=== PATIENT | male | born 1990 | race American Indian/Alaskan Native ===

== ENCOUNTER 2016-09-27 13:20 | Emergency (ER) | payer MEDICAID ==
--- NOTE | 2016-09-27 14:12 | Emergency Department Report ---
ED Psych HPI - General Chief Complaint: Psych Stated Complaint: RESTABLIZED Time Seen by Provider: 09/27/16 13:59 Source: patient Mode of arrival: Ambulatory - History of Present Illness Initial Comments: The patient states that he has not had is in vague "for 2 months. According to triage he" is starting to decompensate last week. Disruptive, delusional and uncooperative with erratic behavior. Cannot control his anger." When I spoke to this patient he was not angry or threatening to me. He probably does have some chronic delusions. He told me that he is a straightforward and honest person that was raised right by his mother. He states that he just needs his medication. He denies auditory hallucinations now or history there of. He states when he does not get his medicine he does not get paranoid but he does get very "hyper" and states "I talk to much". Complaint: other (hyperverbal) -: week(s) Associated Psychiatric Symptoms: racing thoughts, delusions History of same: Yes Quality: constant Improves With: none Worsens With: none Context: not taking psychiatric Associated Symptoms: denies other symptoms Treatments Prior to Arrival: none - Related Data Allergies Allergy/AdvReac Type Severity Reaction Status Date / Time No Known Allergies Allergy Verified 09/27/16 13:32 ED Review of Systems ROS: Stated complaint: RESTABLIZED Other details as noted in HPI Constitutional: denies: chills, fever Eyes: denies: eye pain, eye discharge, vision change ENT: denies: ear pain, throat pain Respiratory: denies: cough, shortness of breath, wheezing Cardiovascular: denies: chest pain, palpitations Endocrine: no symptoms reported Gastrointestinal: denies: abdominal pain, nausea, diarrhea Genitourinary: denies: urgency, dysuria Musculoskeletal: denies: back pain, joint swelling, arthralgia Skin: denies: rash, lesions Neurological: denies: headache, weakness, paresthesias Psychiatric: as per HPI. denies: anxiety, depression, auditory hallucinations, visual hallucinations, homicidal thoughts, suicidal thoughts Hematological/Lymphatic: denies: easy bleeding, easy bruising ED Past Medical Hx - Past Medical History Previous Medical History?: Yes Hx Psychiatric Treatment: Yes (Schz/ Bi-polar. Schzo. effective dx.) - Social History Smoking Status: Current Every Day Smoker Substance Use Type: Alcohol, Marijuana ED Physical Exam - General Limitations: No Limitations General appearance: alert, in no apparent distress - Head Head exam: Present: atraumatic, normocephalic - Eye Eye exam: Present: normal appearance - ENT ENT exam: Present: mucous membranes moist - Neck Neck exam: Present: normal inspection - Respiratory Respiratory exam: Present: normal lung sounds bilaterally. Absent: respiratory distress - Cardiovascular Cardiovascular Exam: Present: regular rate, normal rhythm. Absent: systolic murmur, diastolic murmur, rubs, gallop - GI/Abdominal GI/Abdominal exam: Present: soft, normal bowel sounds. Absent: distended, tenderness, guarding, rebound, rigid - Rectal Rectal exam: Present: deferred - Extremities Exam Extremities exam: Present: normal inspection - Back Exam Back exam: Present: normal inspection - Neurological Exam Neurological exam: Present: alert, oriented X3, CN II-XII intact. Absent: motor sensory deficit - Psychiatric Psychiatric exam: Present: flat affect, manic (hypomanic) - Skin Skin exam: Present: warm, dry, intact, normal color. Absent: rash ED Course Vital Signs 09/27/16 13:33 Temperature 98.6 F Pulse Rate 87 Respiratory 20 Rate Blood Pressure 134/88 O2 Sat by Pulse 100 Oximetry ED Medical Decision Making - Lab Data Result diagrams: 09/27/16 14:03 09/27/16 14:03 Laboratory Results - last 24 hr 09/27/16 14:03 WBC 4.0 L RBC 4.56 Hgb 14.3 Hct 43.4 MCV 95 H MCH 31 MCHC 33 RDW 13.2 Plt Count 246 Lymph % (Auto) 35.6 H Dundy % (Auto) 9.4 H Eos % (Auto) 5.6 H Baso % (Auto) 0.7 Lymph # 1.4 Dundy # 0.4 Eos # 0.2 Baso # 0.0 Seg Neutrophils % 48.7 Seg Neutrophils # 2.0 Laboratory Results - last 24 hr 09/27/16 09/27/16 09/27/16 14:03 14:03 14:30 WBC 4.0 L RBC 4.56 Hgb 14.3 Hct 43.4 MCV 95 H MCH 31 MCHC 33 RDW 13.2 Plt Count 246 Lymph % (Auto) 35.6 H Dundy % (Auto) 9.4 H Eos % (Auto) 5.6 H Baso % (Auto) 0.7 Lymph # 1.4 Dundy # 0.4 Eos # 0.2 Baso # 0.0 Seg Neutrophils % 48.7 Seg Neutrophils # 2.0 Sodium 137 Potassium 4.3 Chloride 101.4 Carbon Dioxide 22 Anion Gap 18 BUN 8 L Creatinine 1.1 Estimated GFR > 60 BUN/Creatinine Ratio 7.27 Glucose 74 L Calcium 9.6 Urine RBC (Auto) 2.0 - Medical Decision Making Patient appears to have a bipolar disorder with psychotic features I believe. He does need to be stabilized with medication. It is a possibility that this can be done here in the emergency department with a course of treatment. I referred the patient to mental [facility] for final determination. We do not have Invega. However, the patient states that he is willing to try another medication. We will see if he responds to Geodon. Critical care attestation.: If time is entered above; I have spent that time in minutes in the direct care of this critically ill patient, excluding procedure time. ED Disposition Clinical Impression: Bipolar disorder with psychotic features Disposition: DC/TX-65 PSY HOSP/PSY UNIT Is pt being admited?: No Does the pt Need Aspirin: No Condition: Stable Referrals: PRIMARY CARE, [Primary Care Provider] - 3-5 Days
[2016-09-27] MEDS ORDERED: GEODON IM ONE (14:14)
[2016-09-27 14:16] LABS: Basophils % (Auto) 0.7 % (0.0-1.8); Eosinophils % (Auto) 5.6 % (0.0-4.3); Hematocrit 43.4 % (35.5-45.6); Hemoglobin 14.3 gm/dl (11.8-15.2); Mean Corpuscular HGB Conc 33 % (32-34); Mean Corpuscular Hemoglobin 31 pg (28-32); Mean Corpuscular Volume 95 fl (84-94); Platelet Count 246 K/mm3 (140-440); Red Blood Count 4.56 M/mm3 (3.65-5.03); Red Cell Distribution Width 13.2 % (13.2-15.2)
[2016-09-27 14:33] LABS: Anion Gap 18 mmol/L; BUN/Creatinine Ratio 7.27; Blood Urea Nitrogen 8 mg/dL (9-20); Calcium 9.6 mg/dL (8.4-10.2); Carbon Dioxide 22 mmol/L (22-30); Chloride 101.4 mmol/L (98-107); Glucose 74 mg/dL (75-100); Potassium 4.3 mmol/L (3.6-5.0); Sodium 137 mmol/L (137-145)
[2016-09-27 14:34] LABS: Urine Drugs of Abuse Note Disclamer
[2016-09-27 14:58] LABS: WBC,Urine < 1.0 /HPF (0.0-6.0)
[2016-09-27 15:01] LABS: Bilirubin,Urine Negative (Negative); Blood,Urine Negative (Negative); Ketones,Urine Negative (Negative)
[2016-09-27 15:02] LABS: Leukocyte Esterase,Urine Negative (Negative); Nitrite,Urine Negative (Negative); Protein,Urine <15 mg/dL mg/dL (Negative)
[2016-09-27] MEDS: GEODON PO SCH (20:21)
[2016-09-28 08:58] VITALS: BP 101/58
[2016-09-28] MEDS: GEODON PO SCH ×2 (10:28→22:22)
--- NOTE | 2016-09-28 17:31 | Emergency Department Report ---
Blank Doc - Documentation Documentation: Yesterday at the patient's mental health assessment was recommended the patient be placed on a 1013 for uncontrolled manic behavior. Inpatient treatment recommended. 1013 signed at this time.
== END 2016-09-28 23:30 ==
LOC: EEVIPCON 13:20 → ED 13:20
DX: F31.9 Bipolar disorder, unspecified (principal); F20.9 Schizophrenia, unspecified; F17.200 Nicotine dependence, unspecified, uncomplicated; F12.90 Cannabis use, unspecified, uncomplicated
CPT/HCPCS: 36415; 80048; 80307; 81001; 85025; 96372; 99285; G0480; J3486; 80320

== ENCOUNTER 2016-12-14 19:30 | Emergency (ER) | payer MEDICAID ==
[2016-12-14 20:45] LABS: Urine Drugs of Abuse Note Disclamer
[2016-12-14 21:01] LABS: Bilirubin,Urine NEG (Negative); Blood,Urine NEG (Negative); Ketones,Urine NEG (Negative); Leukocyte Esterase,Urine NEG (Negative); Mucus,Urine FEW /HPF; Nitrite,Urine NEG (Negative); Protein,Urine <15 mg/dL mg/dL (Negative); Urobilinogen,Urine < 2.0 mg/dL (<2.0)
[2016-12-14 21:21] LABS: Basophils % (Auto) 0.4 % (0.0-1.8); Hematocrit 44.2 % (35.5-45.6); Hemoglobin 14.5 gm/dl (11.8-15.2); Mean Corpuscular HGB Conc 33 % (32-34); Mean Corpuscular Hemoglobin 31 pg (28-32); Mean Corpuscular Volume 94 fl (84-94); Platelet Count 204 K/mm3 (140-440); Red Blood Count 4.72 M/mm3 (3.65-5.03); Red Cell Distribution Width 13.3 % (13.2-15.2); White Blood Count 5.6 K/mm3 (4.5-11.0)
[2016-12-14 21:35] LABS: Anion Gap 17 mmol/L; BUN/Creatinine Ratio 10; Blood Urea Nitrogen 9 mg/dL (9-20); Calcium 9.8 mg/dL (8.4-10.2); Carbon Dioxide 27 mmol/L (22-30); Chloride 101.4 mmol/L (98-107); Glucose 87 mg/dL (75-100); Potassium 4.1 mmol/L (3.6-5.0); Sodium 141 mmol/L (137-145)
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
[2016-12-15 09:24] VITALS: BP 116/66
== END 2016-12-15 14:45 ==
LOC: ED 19:30
DX: R45.851 Suicidal ideations (principal); F32.9 Major depressive disorder, single episode, unspecified; F12.10 Cannabis abuse, uncomplicated; F17.200 Nicotine dependence, unspecified, uncomplicated
CPT/HCPCS: 36415; 80048; 80307; 81001; 85025; 99285; G0480; 80320

== ENCOUNTER 2016-12-31 16:50 | Emergency (ER) | payer MEDICAID ==
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
[2016-12-31 17:29] LABS: Urine Drugs of Abuse Note Disclamer
[2016-12-31 17:32] LABS: Bilirubin,Urine NEG (Negative); Blood,Urine NEG (Negative); Ketones,Urine NEG (Negative); Leukocyte Esterase,Urine NEG (Negative); Nitrite,Urine NEG (Negative); Protein,Urine <15 mg/dL mg/dL (Negative); WBC,Urine < 1.0 /HPF (0.0-6.0)
[2016-12-31 17:46] LABS: Basophils % (Auto) 0.4 % (0.0-1.8); Eosinophils % (Auto) 1.8 % (0.0-4.3); Hematocrit 40.7 % (35.5-45.6); Hemoglobin 13.4 gm/dl (11.8-15.2); Mean Corpuscular HGB Conc 33 % (32-34); Mean Corpuscular Hemoglobin 31 pg (28-32); Mean Corpuscular Volume 93 fl (84-94); Platelet Count 195 K/mm3 (140-440); Red Blood Count 4.38 M/mm3 (3.65-5.03); Red Cell Distribution Width 13.4 % (13.2-15.2); White Blood Count 4.6 K/mm3 (4.5-11.0)
[2016-12-31 17:58] LABS: Anion Gap 16 mmol/L; BUN/Creatinine Ratio 7; Blood Urea Nitrogen 6 mg/dL (9-20); Calcium 9.4 mg/dL (8.4-10.2); Carbon Dioxide 24 mmol/L (22-30); Chloride 101.9 mmol/L (98-107); Glucose 125 mg/dL (75-100); Potassium 3.7 mmol/L (3.6-5.0); Sodium 138 mmol/L (137-145)
--- NOTE | 2016-12-31 18:24 | Emergency Department Report ---
ED Psych HPI - General Chief Complaint: Anxiety Stated Complaint: ANXIETY Time Seen by Provider: 12/31/16 16:58 Source: patient Mode of arrival: Ambulatory - History of Present Illness Initial Comments: Patient is 26 years old male living in a snf he presented today stating that he had an anxiety attack and he does not want to go back to the snf patient stated that when he closes his eyes he he starts seeing what going on in the world. He also status sometimes he will hear voices. Patient denied any suicidal thoughts or homicidal thoughts. -: Gradual Associated Psychiatric Symptoms: racing thoughts Quality: constant Associated Symptoms: denies: confusion, headache, shortness of breath, nausea, vomiting Treatments Prior to Arrival: none - Related Data Home Medications Medication Instructions Recorded Confirmed Last Taken Paliperidone Palmitate [Invega 39 mg IM QMONTH 09/28/16 12/31/16 1 Month Ago Sustenna] Allergies Allergy/AdvReac Type Severity Reaction Status Date / Time No Known Allergies Allergy Verified 12/31/16 16:54 ED Review of Systems ROS: Stated complaint: ANXIETY Other details as noted in HPI Comment: All other systems reviewed and negative Constitutional: denies: chills, fever Respiratory: denies: cough, shortness of breath, SOB with exertion Cardiovascular: denies: chest pain, palpitations, dyspnea on exertion Gastrointestinal: denies: abdominal pain, nausea, vomiting Neurological: denies: headache, paresthesias Psychiatric: anxiety, auditory hallucinations, visual hallucinations. denies: depression, homicidal thoughts, suicidal thoughts ED Past Medical Hx - Past Medical History Hx Psychiatric Treatment: Yes (Schz/ Bi-polar. Schzo. effective dx.) - Social History Smoking Status: Current Every Day Smoker Substance Use Type: None - Medications Home Medications: Home Medications Medication Instructions Recorded Confirmed Last Taken Type Paliperidone Palmitate [Invega 39 mg IM QMONTH 09/28/16 12/31/16 1 Month Ago History Sustenna] ED Physical Exam - General Limitations: No Limitations General appearance: alert, in no apparent distress, anxious - Head Head exam: Present: atraumatic, normocephalic, normal inspection - Eye Eye exam: Present: normal appearance, PERRL, EOMI - ENT ENT exam: Present: normal exam, normal orophraynx, mucous membranes moist - Neck Neck exam: Present: normal inspection, full ROM - Respiratory Respiratory exam: Present: normal lung sounds bilaterally. Absent: respiratory distress, wheezes, rales, rhonchi, stridor - Cardiovascular Cardiovascular Exam: Present: tachycardia - GI/Abdominal GI/Abdominal exam: Present: soft, normal bowel sounds. Absent: distended, tenderness, guarding, rebound, rigid, mass, bruit, pulsatile mass - Extremities Exam Extremities exam: Present: normal inspection, normal capillary refill. Absent: tenderness - Back Exam Back exam: Present: normal inspection. Absent: tenderness, CVA tenderness (R), CVA tenderness (L) - Neurological Exam Neurological exam: Present: alert, oriented X3, CN II-XII intact - Psychiatric Psychiatric exam: Present: normal mood, anxious. Absent: depressed, agitated, manic, homicidal ideation, suicidal ideation - Skin Skin exam: Present: warm, intact, normal color ED Course Vital Signs 12/31/16 16:55 Temperature 98.8 F Pulse Rate 105 H Respiratory 20 Rate Blood Pressure 122/73 O2 Sat by Pulse 96 Oximetry ED Medical Decision Making - Lab Data Result diagrams: 12/31/16 17:25 12/31/16 17:25 Critical care attestation.: If time is entered above; I have spent that time in minutes in the direct care of this critically ill patient, excluding procedure time. ED Disposition Clinical Impression: Depression, Anxiety and depression Disposition: [id number]/TX-65 PSY HOSP/PSY UNIT Is pt being admited?: No Condition: Stable Referrals: PRIMARY CARE, [Primary Care Provider] - 3-5 Days
[2017-01-01 21:09] VITALS: BP 113/56
== END 2017-01-01 21:13 ==
LOC: ED 16:50
DX: F41.8 Other specified anxiety disorders (principal); F31.9 Bipolar disorder, unspecified; F20.9 Schizophrenia, unspecified; F17.200 Nicotine dependence, unspecified, uncomplicated
CPT/HCPCS: 36415; 80048; 80307; 81001; 85025; 99285; G0480; 80320

== ENCOUNTER 2017-01-22 22:57 | Emergency (ER) | payer MEDICAID ==
[2017-01-23 00:29] LABS: Basophils % (Auto) 0.4 % (0.0-1.8); Eosinophils % (Auto) 2.8 % (0.0-4.3); Hemoglobin 13.6 gm/dl (11.8-15.2); Mean Corpuscular HGB Conc 33 % (32-34); Mean Corpuscular Hemoglobin 31 pg (28-32); Mean Corpuscular Volume 94 fl (84-94); Platelet Count 277 K/mm3 (140-440); Red Blood Count 4.36 M/mm3 (3.65-5.03); Red Cell Distribution Width 14.3 % (13.2-15.2); White Blood Count 4.9 K/mm3 (4.5-11.0)
[2017-01-23 00:44] LABS: Anion Gap 18 mmol/L; BUN/Creatinine Ratio 7; Blood Urea Nitrogen 6 mg/dL (9-20); Calcium 9.1 mg/dL (8.4-10.2); Carbon Dioxide 23 mmol/L (22-30); Chloride 104.6 mmol/L (98-107); Glucose 92 mg/dL (75-100); Potassium 4.2 mmol/L (3.6-5.0); Sodium 141 mmol/L (137-145)
[2017-01-23 01:03] LABS: Urine Drugs of Abuse Note Disclamer
[2017-01-23 01:43] LABS: WBC,Urine < 1.0 /HPF (0.0-6.0)
[2017-01-23 01:50] LABS: Bilirubin,Urine Negative (Negative); Blood,Urine Negative (Negative); Ketones,Urine Negative (Negative); Leukocyte Esterase,Urine Negative (Negative); Nitrite,Urine Negative (Negative); Protein,Urine <15 mg/dL mg/dL (Negative); Urobilinogen,Urine < 2.0 mg/dL (<2.0)
[2017-01-23] MEDS ORDERED: HALDOL IM PRN (08:35)
[2017-01-23] MEDS ORDERED: ATIVAN IM PRN (08:35)
--- NOTE | 2017-01-23 08:35 | Emergency Department Report ---
ED General Adult HPI - General Chief complaint: Psych Stated complaint: ANXIETY/ OUT OF MEDICATION Time Seen by Provider: 01/23/17 08:01 Source: patient, EMS (ems notes not available at time of chart dictation), RN notes reviewed, old records reviewed Mode of arrival: Ambulatory Limitations: No Limitations - History of Present Illness Initial comments: This is a 26-year-old male who was previously unknown to this provider. He has a past medical history of psychiatric disease. He presents to the ER requesting refill on Risperdal and trazodone. He also reports resolved anxiety attack. He cannot describe the anxiety attack. He denies headache, neck pain, chest pain, abdominal pain and shortness of breath. On review of systems, he indicates that he was feeling "tired", and attempted to overdose on Risperdal yesterday at 3:00 PM. He doesn't know how many tablets he took, and he denies coingestions. He also noticed visual hallucinations. He indicates no access to guns and firearms. -: Gradual Severity scale (0 -10): 0 Consistency: now resolved Improves with: none Worsens with: none Associated Symptoms: other (anxiety). denies: confusion, chest pain, cough, diaphoresis, fever/chills, headaches, loss of appetite, malaise, nausea/vomiting , rash, shortness of breath, syncope, weakness - Related Data Home Medications Medication Instructions Recorded Confirmed Last Taken Paliperidone Palmitate [Invega 39 mg IM [facility]MONTH 09/28/16 12/31/16 1 Month Ago Sustenna] ~08/29/16 Allergies Allergy/AdvReac Type Severity Reaction Status Date / Time No Known Allergies Allergy Verified 12/31/16 16:54 ED Review of Systems ROS: Stated complaint: ANXIETY/ OUT OF MEDICATION Other details as noted in HPI Constitutional: denies: fever Eyes: denies: eye discharge ENT: denies: epistaxis Respiratory: denies: cough Cardiovascular: denies: chest pain Gastrointestinal: denies: abdominal pain Genitourinary: denies: dysuria Musculoskeletal: as per HPI Skin: as per HPI Neurological: denies: headache Psychiatric: visual hallucinations. denies: homicidal thoughts ED Past Medical Hx - Past Medical History Previous Medical History?: Yes Hx Psychiatric Treatment: Yes (Schz/ Bi-polar. Schzo. effective dx.) - Surgical History Past Surgical History?: No - Social History Smoking Status: Current Every Day Smoker Substance Use Type: None - Medications Home Medications: Home Medications Medication Instructions Recorded Confirmed Last Taken Type Paliperidone Palmitate [Invega 39 mg IM [facility]MONTH 09/28/16 12/31/16 1 Month Ago History Sustenna] ~08/29/16 ED Physical Exam - General Limitations: No Limitations General appearance: alert, in no apparent distress - Head Head exam: Present: atraumatic, normocephalic - Eye Eye exam: Present: normal appearance, PERRL, EOMI, other (visual acuity intact to finger counting, color perception, reading at a close distance). Absent: nystagmus - ENT ENT exam: Present: normal exam, normal orophraynx, mucous membranes moist, normal external ear exam - Neck Neck exam: Present: normal inspection, full ROM - Respiratory Respiratory exam: Present: normal lung sounds bilaterally. Absent: respiratory distress, wheezes, rales, rhonchi, stridor - Cardiovascular Cardiovascular Exam: Present: regular rate, normal rhythm, normal heart sounds. Absent: bradycardia, tachycardia, irregular rhythm, systolic murmur, diastolic murmur, rubs, gallop - GI/Abdominal GI/Abdominal exam: Present: soft, normal bowel sounds. Absent: distended, tenderness, guarding, rebound, rigid, pulsatile mass - Rectal Rectal exam: Present: deferred - Extremities Exam Extremities exam: Present: normal inspection, full ROM, normal capillary refill. Absent: pedal edema, joint swelling, calf tenderness - Back Exam Back exam: Present: normal inspection, full ROM. Absent: tenderness, CVA tenderness (R), CVA tenderness (L), muscle spasm, paraspinal tenderness, vertebral tenderness - Neurological Exam Neurological exam: Present: alert, oriented X3, normal gait, other (Extraocular movements intact. Tongue midline. No facial droop. Facial sensation intact to light touch in the V1, V2, V3 distribution bilaterally. 5 and 5 strength in 4 extremities.. Sensation is intact to light touch in 4 extremities.). Absent : motor sensory deficit - Psychiatric Psychiatric exam: Present: flat affect. Absent: homicidal ideation - Skin Skin exam: Present: warm, dry, intact, normal color. Absent: rash ED Course Vital Signs 01/22/17 01/23/17 23:30 09:33 Temperature 98.7 F 98.7 F Pulse Rate 70 58 L Respiratory 16 16 Rate Blood Pressure 118/66 125/73 [Right] O2 Sat by Pulse 97 100 Oximetry - Reevaluation(s) Reevaluation #1: 01/23/17 10:05 Differential diagnosis, including but not limited to: Decompensated psychiatric disease, overdose, suicidality, medication refill Assessment and plan: 26-year-old male who requests refill on Risperdal and trazodone. He then goes on to tell me that he has a 5 day supply of Risperdal. He further elaborates on review of systems that he overdosed more than 12 hours ago on a few Risperdal tablets. He reports ingestion was at 3:00 PM yesterday. It is now 10:00 AM. The reported overdose is approximately 19 hours old. Serum toxicology screens are pending. EKG is unremarkable. The patient is in normal sinus clinically and as per EKG. There is some motion artifact in the lateral leads, however on physical exam and upon global review of the EKG he is on atrial fibrillation. He required a 1013. We will contact the psychiatry team to evaluate him once his serum toxicology studies have resulted. Given that the ingestion is 19 hours old, his vital signs have remained stable, and I presume his serum toxicology studies will be unremarkable, I do not believe the patient requires an emergent consultation with the Poison Control [facility]. Reevaluation #2: 01/23/17 14:20 Patient resting comfortably, and in no distress. Serum toxicology studies are unremarkable. The patient is medically stable for psychiatric consultation, evaluation and placement at this time. there does not appear to be any immediate medical contraindication to psychiatric placement. ED Medical Decision Making - Lab Data Result diagrams: 01/22/17 23:49 01/22/17 23:49 Vital Signs 01/22/17 01/23/17 23:30 09:33 Temperature 98.7 F 98.7 F Pulse Rate 70 58 L Respiratory 16 16 Rate Blood Pressure 118/66 125/73 [Right] O2 Sat by Pulse 97 100 Oximetry Lab Results 01/22/17 01/22/17 01/22/17 Range/Units 23:49 23:49 23:49 WBC 4.9 (4.5-11.0) K/mm3 RBC 4.36 (3.65-5.03) M/mm3 Hgb 13.6 (11.8-15.2) gm/dl Hct 41.0 (35.5-45.6) % MCV 94 (84-94) fl MCH 31 (28-32) pg MCHC 33 (32-34) % RDW 14.3 (13.2-15.2) % Plt Count 277 (140-440) K/mm3 Lymph % (Auto) 36.5 H (13.4-35.0) % Caswell % (Auto) 4.8 (0.0-7.3) % Eos % (Auto) 2.8 (0.0-4.3) % Baso % (Auto) 0.4 (0.0-1.8) % Lymph # 1.8 (1.2-5.4) K/mm3 Caswell # 0.2 (0.0-0.8) K/mm3 Eos # 0.1 (0.0-0.4) K/mm3 Baso # 0.0 (0.0-0.1) K/mm3 Seg Neutrophils % 55.5 (40.0-70.0) % Seg Neutrophils # 2.7 (1.8-7.7) K/mm3 Sodium 141 (137-145) mmol/L Potassium 4.2 (3.6-5.0) mmol/L Chloride 104.6 (98-107) mmol/L Carbon Dioxide 23 (22-30) mmol/L Anion Gap 18 mmol/L BUN 6 L (9-20) mg/dL Creatinine 0.9 (0.8-1.5) mg/dL Estimated GFR > 60 ml/min BUN/Creatinine Ratio 7 % Glucose 92 (75-100) mg/dL Calcium 9.1 (8.4-10.2) mg/dL Total Creatine Kinase (55-170) units/L Urine Color (Yellow) Urine Turbidity (Clear) Urine pH (5.0-7.0) Ur Specific Andrews (1.003-1.030) Urine Protein (Negative) mg/dL Urine Glucose (UA) (Negative) mg/dL Urine Ketones (Negative) mg/dL Urine Blood (Negative) Urine Nitrite (Negative) Ur Reducing Substances Urine Bilirubin (Negative) Urine Ictotest Urine Urobilinogen (<2.0) mg/dL Ur Leukocyte Esterase (Negative) Urine WBC (Auto) (0.0-6.0) /HPF Urine RBC (Auto) (0.0-6.0) /HPF U Epithel Cells (Auto) (0-13.0) /HPF Urine Opiates Screen Urine Methadone Screen Ur Barbiturates Screen Ur Phencyclidine Scrn Ur Amphetamines Screen U Benzodiazepines Scrn Urine Cocaine Screen U Marijuana (THC) Screen Drugs of Abuse Note Plasma/Serum Alcohol < 0.01 (0-0.07) gm% 01/23/17 01/23/17 01/23/17 Range/Units 00:41 00:41 08:45 WBC (4.5-11.0) K/mm3 RBC (3.65-5.03) M/mm3 Hgb (11.8-15.2) gm/dl Hct (35.5-45.6) % MCV (84-94) fl MCH (28-32) pg MCHC (32-34) % RDW (13.2-15.2) % Plt Count (140-440) K/mm3 Lymph % (Auto) (13.4-35.0) % Caswell % (Auto) (0.0-7.3) % Eos % (Auto) (0.0-4.3) % Baso % (Auto) (0.0-1.8) % Lymph # (1.2-5.4) K/mm3 Caswell # (0.0-0.8) K/mm3 Eos # (0.0-0.4) K/mm3 Baso # (0.0-0.1) K/mm3 Seg Neutrophils % (40.0-70.0) % Seg Neutrophils # (1.8-7.7) K/mm3 Sodium (137-145) mmol/L Potassium (3.6-5.0) mmol/L Chloride (98-107) mmol/L Carbon Dioxide (22-30) mmol/L Anion Gap mmol/L BUN (9-20) mg/dL Creatinine (0.8-1.5) mg/dL Estimated GFR ml/min BUN/Creatinine Ratio % Glucose (75-100) mg/dL Calcium (8.4-10.2) mg/dL Total Creatine Kinase 380 H (55-170) units/L Urine Color Yellow (Yellow) Urine Turbidity Clear (Clear) Urine pH 6.0 (5.0-7.0) Ur Specific Andrews 1.015 (1.003-1.030) Urine Protein <15 mg/dl (Negative) mg/dL Urine Glucose (UA) Negative (Negative) mg/dL Urine Ketones Negative (Negative) mg/dL Urine Blood Negative (Negative) Urine Nitrite Negative (Negative) Ur Reducing Substances Not Reportable Urine Bilirubin Negative (Negative) Urine Ictotest Not Reportable Urine Urobilinogen < 2.0 (<2.0) mg/dL Ur Leukocyte Esterase Negative (Negative) Urine WBC (Auto) < 1.0 (0.0-6.0) /HPF Urine RBC (Auto) 2.0 (0.0-6.0) /HPF U Epithel Cells (Auto) < 1.0 (0-13.0) /HPF Urine Opiates Screen Presumptive negative Urine Methadone Screen Presumptive negative Ur Barbiturates Screen Presumptive negative Ur Phencyclidine Scrn Presumptive negative Ur Amphetamines Screen Presumptive negative U Benzodiazepines Scrn Presumptive negative Urine Cocaine Screen Presumptive negative U Marijuana (THC) Screen Presumptive negative Drugs of Abuse Note Disclamer Plasma/Serum Alcohol (0-0.07) gm% - EKG Data -: EKG Interpreted by Me EKG shows normal: sinus rhythm - EKG Data When compared to previous EKG there are: previous EKG unavailable 01/23/17 10:12 Normal sinus, 68 bpm, normal axis, normal intervals, not morphologically consistent with ST elevation myocardial infarction. There is no prior for comparison. Critical care attestation.: If time is entered above; I have spent that time in minutes in the direct care of this critically ill patient, excluding procedure time. ED Disposition Clinical Impression: Mood disorder Disposition: [id number]/TX-[id number] PSY HOSP/PSY UNIT Is pt being admited?: No Does the pt Need Aspirin: No Condition: Good Referrals: PRIMARY CARE, [Primary Care Provider] - 3-5 Days
[2017-01-23 15:38] VITALS: BP 117/65
== END 2017-01-23 19:17 ==
LOC: ED 22:57
DX: F39 Unspecified mood [affective] disorder (principal); F25.0 Schizoaffective disorder, bipolar type; F17.200 Nicotine dependence, unspecified, uncomplicated
CPT/HCPCS: 36415; 80048; 80307; 81001; 82550; 85025; 93005; 93010; 99285; G0480; 80320